=== PATIENT | male | born 1980 | race Caucasian/White ===

== ENCOUNTER 2020-03-01 17:02 | Observation (INO) | payer OTHER ==
[~2020-03-01] VITALS: Ht 180.3 cm; Wt 93.1 kg
[2020-03-01 17:10] VITALS: BP 138/99
[2020-03-01] MEDS ORDERED: SYNTHROID75 MCG PO (17:13)
[2020-03-01 17:58] LABS: ABSOLUTE EOSINOPHILS 0.1 thou/uL (0.0-0.7); ABSOLUTE LYMPHOCYTES 2.8 thou/uL (0.8-5.3); ABSOLUTE MONOCYTES 0.8 thou/uL (0.0-1.2); ABSOLUTE NEUTROPHILS 4.6 thou/uL (1.6-8.1); BASOPHILS 0.3 %; EOSINOPHILS 1.1 %; HEMATOCRIT 44.6 % (42.0-52.0); HEMOGLOBIN 14.9 gm/dL (14.0-18.0); LYMPHOCYTES 33.9 %; MCH 30.2 pg (26.0-34.0); MCHC 33.5 g/dL (28.0-37.0); MCV 90.2 fL (80.0-100.0); MONOCYTES 9.5 %; MPV 8.3 fl. (7.2-11.1); NUCLEATED RBCS 0 /100WBC; PLATELET COUNT* 313 thou/uL (150-400); POLYS 55.2 %; RBC 4.94 mil/uL (4.50-6.00); WBC 8.3 thou/uL (4.0-11.0)
[2020-03-01 18:08] LABS: CALCIUM 9.1 mg/dL (8.5-10.1); CREATININE 1.1 mg/dL (0.6-1.3); POTASSIUM 3.8 mmol/L (3.5-5.1)
[2020-03-01 18:18] LABS: ALBUMIN 4.9 g/dL (3.4-5.0); MAGNESIUM 1.8 mg/dL (1.8-2.4); TOTAL BILIRUBIN 0.4 mg/dL (<0.1-1.0); TOTAL PROTEIN 8.7 g/dL (6.4-8.2)
[2020-03-01 20:04] VITALS: BP 117/79
[2020-03-01 20:30] VITALS: BP 120/68
[2020-03-02 00:09] VITALS: BP 102/48
[2020-03-02 01:00] VITALS: BP 107/61
[2020-03-02 04:12] VITALS: BP 105/66
--- NOTE | 2020-03-02 06:20 | NUR ---
PT CARE ASSUMED AT 1930. SAT MAINTAINED IN RA. ALERT AND ORIENTED X4. DENIES PAIN. SOB WITH EXERTION. CALL LIGHT WITHIN REACH AND BED IN LOW POSITION. HOURLY ROUNDING DONE FOR PT SAFETY.
[2020-03-02 08:00] VITALS: BP 142/73
--- NOTE | 2020-03-02 13:11 | 2DMMODE ---
[place] [address] 2 D/M-MODE ECHOCARDIOGRAM Name: MILIND CRESPO Aníbal Room: [address] Zee#: [id number] Admission: 03/01/20 Attend Phys: Aleida cardozo Sa Discharge: Date of : 82 Date of Service: 03/02/20 1310 Report #: [id number] THIS REPORT FOR: cc: LAVELL - Jessie family physician/PCP LAVELL - No family physician/PCP David Mcdonough MD [facility] ~ APPROVED REPORT Study performed: 03/02/2020 10:03:47 EXAM: Comprehensive 2D, Doppler, and color-flow Echocardiogram Patient Location: In-Patient Room #: [facility] Status: routine BSA: 2.14 HR: 70 bpm BP: 105/66 mmHg Rhythm: NSR Other Information Study Quality: Good Indications Dyspnea Chest Pain 2D Dimensions IVSd: 10.08 (7-11mm) LVOT Diam: 22.11 (18-24mm) LVDd: 49.96 mm PWd: 8.75 (7-11mm) Ascending Ao: 31.75 (22-36mm) LVDs: 36.23 (25-40mm) Aortic Root: 32.92 mm Volumes Left Atrial Volume (Systole) LA ESV Index: 21.00 mL/m2 Aortic Valve AoV Peak Robbie.: 1.14 m/s AO Peak Gr.: 5.22 mmHg LVOT Max P.01 mmHg AO Mean Gr.: 2.90 mmHg LVOT Mean P.28 mmHg LVOT Max V: 0.87 m/s AO V2 VTI: 21.93 cm LVOT Mean V: 0.50 m/s MARSHALL (VTI): 3.18 cm2 LVOT V1 VTI: 18.16 [place] [address] 2 D/M-MODE ECHOCARDIOGRAM Name: MILIND CRESPO [address] [id number] Admission: 03/01/20 Attend Phys: Aleida cardozo Sa Discharge: Date of : 82 Date of Service: 03/02/20 1310 Report #: [id number] Mitral Valve E/A Ratio: 1.34 MV Decel. Time: 227.91 ms MV E Max Robbie.: 0.63 m/s MV PHT: 66.09 ms MVA (PHT): 3.33 cm2 TDI E/Lateral E': 3.94 E/Medial E': 4.85 Medial E' Robbie.: 0.13 m/s Lateral E' Robbie.: 0.16 m/s Pulmonary Valve PV Peak Robbie.: 0.86 m/s PV Peak Gr.: 2.93 mmHg Tricuspid Valve RAP Estimate: 5.00 mmHg TR Peak Gr.: 12.74 mmHg RVSP: 17.00 mmHg PA Pressure: 17.00 mmHg Left Ventricle The left ventricle is normal size. There is normal LV segmental wall motion. There is normal left ventricular wall thickness. Left ventricular systolic function is normal. The left ventricular ejection fraction is within the normal range. LVEF is 55-60%. The left ventricular diastolic function is normal. Right Ventricle The right ventricle is normal size. The right ventricular systolic function is normal. Atria The left atrium size is normal. The right atrium size is normal. Aortic Valve The aortic valve is normal in structure. No aortic regurgitation is present. There is no aortic valvular stenosis. Mitral Valve The mitral valve is normal in structure. Trace mitral regurgitation. No evidence of mitral valve stenosis. Tricuspid Valve The tricuspid valve is normal in structure. [place] [address] 2 D/M-MODE ECHOCARDIOGRAM Name: MILIND CRESPO Room: [address]#: [id number] Admission: 03/01/20 Attend Phys: Aleida cardozo Sa Discharge: Date of : 82 Date of Service: 03/02/20 1310 Report #: [id number] regurgitation. No pulmonary hypertension. Pulmonic Valve The pulmonary valve is normal in structure. Trace pulmonic regurgitation. Great Vessels The aortic root is normal in size. IVC is normal in size and collapses >50% with inspiration. Pericardium There is no pericardial effusion. <Conclusion> There is normal left ventricular wall thickness. Left ventricular systolic function is normal. The left ventricular ejection fraction is within the normal range. LVEF is 55-60%. The left ventricular diastolic function is normal. The right ventricle is normal size. The left atrium size is normal. The aortic valve is normal in structure. The mitral valve is normal in structure. The tricuspid valve is normal in structure. IVC is normal in size and collapses >50% with inspiration. There is no pericardial effusion. There is normal LV segmental wall motion. <ELECTRONICALLY SIGNED> By: David Mcdonough MD, FACC 03/02/201309 09 09 David Mcdonough MD, FACC /INF
--- NOTE | 2020-03-02 15:42 | EKG ---
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1980 Requested By: Brittney Ndiaye Order Number: [id number] MD: David Mcdonough Measurements Intervals [place] Rate: 71 P: 68 SD: 137 QRS: -29 QRSD: 98 T: 20 QT: 402 QTc: 437 Interpretive Statements Sinus rhythm Borderline left axis deviation ST elev, probable normal early repol pattern No previous ECG available for comparison Electronically Signed On 03-02-2020 15:41:06 CDT by David Mcdonough [email or web address] <ELECTRONICALLY SIGNED> By: David Mcdonough MD, [facility] 03/02/20 1541 1808 1808 David Mcdonough MD, [facility] /EPI
--- NOTE | 2020-03-02 15:44 | EKG ---
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 : 1980 Requested By: Brittney Ndiaye Order Number: [id number] MD: David Mcdonough Measurements Intervals [place] Rate: 64 P: 36 [place]: 139 QRS: -24 QRSD: 101 T: 6 QT: 413 QTc: 426 Interpretive Statements Sinus rhythm Borderline left axis deviation Borderline low voltage, extremity leads ST elev, probable normal early repol pattern No previous ECG available for comparison Electronically Signed On 03-02-2020 15:42:44 CDT by David Mcdonough [email or web address] <ELECTRONICALLY SIGNED> By: David Mcdonough MD, [facility] 03/02/20 1542 David Mcdonough MD, [facility] /EPI
[2020-03-02 15:57] VITALS: BP 121/62
--- NOTE | 2020-03-02 17:56 | CARDNUC ---
[place] [address] CARDIAC NUCLEAR IMAGING REPORT Name: CHERIEMILIND Aníbal Room: [address] M.R.#: [id number] Admission: 03/01/20 Attend Phys: Aleida cardozo Sa Discharge: Date of : 82 Date of Service: 03/02/20 1754 Report #: [id number] THIS REPORT FOR: cc: FAM - No family physician/PCP FAM - No family physician/PCP Hayden Das MD [facility] ~ APPROVED REPORT Study performed: 03/01/2020 21:03:00 Indication: Chest pain, Syncope, Dyspnea Patient Location: Out-Patient Stress Tech: Doris Lorenzo Stress Nurse: Tracy Perdomo RN Ht: 5 ft 11 in Wt: 220 lbs BSA: 2.20 m2 BMI: 30.68 Medical History Medical History: Current Smoker Medications: no cardiac meds Allergies: codeine Cardiac Risk Factors: , FHX of CAD, Smoking Exercise History: Physically active Resting Data Rest SPECT myocardial perfusion imaging was performed in supine position 30 minutes following the intravenous injection of 11.5 mCi of Tc-99m Sestamibi. Time of rest injection: 09:00 The images were gated to evaluate regional wall motion and calculate left ventricular ejection fraction. Administration Route: IV Administration Site: Right AC Exercise Stress At peak stress, the patient was injected intravenously with 36.0mCi of Tc-99m Sestamibi. Time of stress injection: 11:10 Administration Route: IV Administration Site: Right AC Heart Rate at time of stress injection: 174 bpm. Gated Stress SPECT was performed 40 [place] [address] CARDIAC NUCLEAR IMAGING REPORT Name: MILIND CRESPO Room: [address]#: [id number] Admission: 03/01/20 Attend Phys: Aleida cardozo Sa Discharge: Date of : 82 Date of Service: 03/02/20 1754 Report #: [id number] The images were gated to evaluate regional wall motion and calculate left ventricular ejection fraction. Prone imaging was performed. Stress Test Details Stress Test: Exercise stress testing was performed using a modified Tacho protocol. HR Max Heart Rate (APMHR): 182 bpm Resting HR: 77 bpm Target HR (85% APMHR): 154 bpm Max HR Achieved: 174 bpm % of APMHR: 95 Recovery HR: 64 bpm BP Resting BP: 114/81 mmHg Max BP: 254/96 mmHg Recovery BP: 98/68 mmHg ECG Resting ECG: Sinus Rhythm Stress ECG: Sinus Tachycardia Arrhythmia: None Recovery ECG: Sinus Rhythm Recovery ST Change: None Recovery Arrhythmia: None Clinical Reason for Termination: Dyspnea Exercise duration: 10 min 26 sec Exercise capacity: 95 METs Overall Exercise Capacity for Age: Superior The patient had no significant cardiac symptoms during exercise. Patient did get somewhat hypotensive post exercise requiring a fluid bolus. No chest pain was reported. Nurse Comments The patient became diaphorectic, pale and weak after getting off treadmill. Heartrate was normal but dropped quickly. BP also dropped quickly to 78/55. pt was given a 700 ml bolus of ns and placed in recmbant position. After approx 8 min pt was getting stronger, no longer diaphoretc, color pink and bp improved. The patient was then taken to [facility]. Stress ECG Conclusion The baseline 12-lead EKG shows sinus rhythm without significant ST segment or T-wave abnormalities. EKGs during [place] [address] CARDIAC NUCLEAR IMAGING REPORT Name: MILIND CRESPO Room: [address] Zee#: [id number] Admission: 03/01/20 Attend Phys: Aleida cardozo Sa Discharge: Date of : 82 Date of Service: 03/02/20 1754 Report #: [id number] sinus rhythm and sinus tachycardia with no significant ST segment or T-wave changes when compared to baseline. There were no stress-induced arrhythmias. Study Quality Study: Good Artifact: No artifact Study Data At rest, the left ventricular ejection fraction was 57%.. Post stress, the left ventricular ejection was 62%.. TID = 1.00. Perfusion Perfusion images obtained at rest and post exercise stress show uniform uptake of the radioisotope throughout the myocardium without defect. Wall Motion Normal left ventricular wall motion. Nuclear Conclusion ECG Findings: negative for ischemia Clinical Findings: negative for ischemia Nuclear Findings: negative for ischemia Exercise Capacity: normal Left Ventricular Function: normal Risk Study: low Myocardial perfusion images show no defect to suggest infarct or ischemia. Left ventricular systolic function appears normal on gated studies. This is a low risk study. <Conclusion> The baseline 12-lead EKG shows sinus rhythm without significant ST segment or T-wave abnormalities. EKGs during and post exercise showed sinus rhythm and sinus tachycardia with no significant ST segment or T-wave changes when compared to baseline. There were no stress-induced arrhythmias. <ELECTRONICALLY SIGNED> By: Hayden Das MD, FACC 03/02/20 1754 53 53 Hayden Das MD, FACC /INF
--- NOTE | 2020-03-02 18:00 | NUR ---
ASSUMED PT CARE AT 0700, PT A&O X4, VSS, RA, CAMPAIGN DIRECTOR TRACING SINUS RHYTHM, UP AD ROSCOE. PT HAD STRESS TEST THIS SHIFT, PT BECAME DIAPHORETIC, PALE, WEAK, AND HYPOTENSIVE DURING TEST, DR WHITLEY AND DR RODRIGUEZ NOTIFIED, NEW ORDER FOR CARDIOLOGY CONSULT, PT TO STAY ANOTHER NIGHT, PT EDUCATED ON NOT DISCHARGING, AGREES WITH AND GRATEFUL FOR DECISION. HOURLY ROUNDING COMPLETED.
[2020-03-02 20:20] VITALS: BP 106/61
[2020-03-03 00:16] VITALS: BP 95/55
[2020-03-03 04:09] VITALS: BP 96/49
--- NOTE | 2020-03-03 07:58 | NUR ---
PT CARE ASSUMED AT 1930. SAT MAINTAINED IN RA. ALERT AND ORIENTED X4. DENIES PAIN AND SOB. CALL LIGHT WITHIN REACH AND BED IN LOW POSIITON. HOURLY ROUNDING DONE FOR PT SAFETY.
[2020-03-03 08:00] VITALS: BP 103/83
[2020-03-03 12:25] VITALS: BP 103/83
--- NOTE | 2020-03-03 14:30 | NUR ---
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 PT DISCHARGED TO HOME AT APPROX 1425, EDUCATED ON ALL MEDICATIONS AND FOLLOW UP APPTS. IV AND GAS TORCH SOLDERER REMOVED, HOURLY ROUNDING COMPLETED.
== END 2020-03-03 14:35 | disposition home or self-care (01) ==
LOC: M.ERS 17:02 → M.2W 19:21 → M.TBA-ER 19:21 → M.2W 20:23
PROVIDERS: Nurse Practitioner Family; ADMIT Family Medicine
DX: R55 Syncope and collapse (principal); R07.89 Other chest pain; E03.9 Hypothyroidism, unspecified; F10.10 Alcohol abuse, uncomplicated; F17.210 Nicotine dependence, cigarettes, uncomplicated

== ENCOUNTER 2021-05-15 15:18 | Emergency (ER) | payer OTHER ==
[~2021-05-15] VITALS: Ht 180.3 cm; Wt 81.7 kg
[~2021-05-15 15:18] MED LIST: SYNTHROID75 MCG PO
[2021-05-15] MEDS ORDERED: ADDERALL XR 1515 MG PO (16:23)
[2021-05-15] MEDS ORDERED: EUTHYROX175 MCG PO (16:24)
[2021-05-15 17:33] LABS: HEMATOCRIT 41.7 % (42.0-52.0); HEMOGLOBIN 14.2 gm/dL (14.0-18.0); MCH 29.5 pg (26.0-34.0); MCV 86.6 fL (80.0-100.0); MPV 8.1 fl. (7.2-11.1); NUCLEATED RBCS 0 /100WBC; PLATELET COUNT* 294 thou/uL (150-400); RBC 4.82 mil/uL (4.50-6.00); RDW-CV 14.2 % (10.5-14.5); WBC 14.5 thou/uL (4.0-11.0)
[2021-05-15 17:38] LABS: CALCIUM 8.7 mg/dL (8.5-10.1); CREATININE 1.3 mg/dL (0.6-1.3); POTASSIUM 3.9 mmol/L (3.5-5.1)
[2021-05-15 17:43] LABS: ALBUMIN 4.1 g/dL (3.4-5.0); TOTAL BILIRUBIN 0.6 mg/dL (<0.1-1.0); TOTAL PROTEIN 7.5 g/dL (6.4-8.2)
[2021-05-15 18:04] LABS: URINE BILIRUBIN NEGATIVE (Negative); URINE BLOOD NEGATIVE (Negative); URINE CLARITY CLEAR; URINE COLOR YELLOW; URINE GLUCOSE-RANDOM NEGATIVE (Negative); URINE KETONES NEGATIVE (Negative); URINE LEUKOCYTES-REFLEX NEGATIVE (Negative); URINE NITRITE-REFLEX NEGATIVE (Negative); URINE PROTEIN NEGATIVE (Negative); URINE UROBILINOGEN 0.2 E.U./dl (0.2-1.0)
[2021-05-15 18:08] LABS: ABSOLUTE NEUTROPHILS 13.5 thou/uL (1.6-8.1); PLATELET ESTIMATE ADEQUATE
[2021-05-15 18:59] LABS: ESR (SEDRATE) 3 mm/hr (0-15)
[2021-05-15 19:49] VITALS: BP 107/65
--- NOTE | 2021-05-16 10:03 | EKG ---
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[facility] : 1980 Requested By: Brittney Ndiaye Order Number: [id number] MD: Hayden Das Measurements Intervals [place] Rate: 79 P: 72 [place]: 128 QRS: -11 QRSD: 96 T: 24 QT: 348 QTc: 399 Interpretive Statements Sinus rhythm Compared to ECG 03/02/2020 08:23:52 ST (T wave) deviation no longer present Electronically Signed On 05-16-2021 10:03:27 CDT by Hayden Das [email or web address] <ELECTRONICALLY SIGNED> By: Hayden Das MD, [facility] 05/16/21 1003 1753 1753 Hayden Das MD, [facility] /EPI
== END 2021-05-15 19:49 | disposition home or self-care (01) ==
LOC: M.ERS 15:18
PROVIDERS: Nurse Practitioner Family
DX: R55 Syncope and collapse (principal); Z20.822 Contact with and (suspected) exposure to COVID-19; M79.18 Myalgia, other site; R68.83 Chills (without fever); E03.9 Hypothyroidism, unspecified; F17.210 Nicotine dependence, cigarettes, uncomplicated; Z88.5 Allergy status to narcotic agent